=== PATIENT | female | born 1985 | race African-American/Black ===

== ENCOUNTER 2021-03-31 11:10 | Emergency (ER) | payer MEDICAID ==
[~2021-03-31] VITALS: Ht 160 cm; Wt 63.0 kg
[2021-03-31] MEDS ORDERED: HYDROCODONE/ACETAMINOPHEN 5/325MG TABLET PO ONE (11:30)
[2021-03-31] MEDS ORDERED: HYDR-4001 MT (12:23)
[2021-03-31 14:32] VITALS: BP 136/86
== END 2021-03-31 13:36 | disposition home or self-care (01) ==
LOC: ER 11:10
DX: S50.02XA Contusion of left elbow, initial encounter (principal); J45.909 Unspecified asthma, uncomplicated; Z88.5 Allergy status to narcotic agent; Z98.890 Other specified postprocedural states; W01.0XXA Fall on same level from slipping, tripping and stumbling without subsequent striking against object, initial encounter; Y93.89 Activity, other specified; Y92.018 Other place in single-family (private) house as the place of occurrence of the external cause
CPT/HCPCS: 29125; 73080; 99283; A4565